=== PATIENT | male | born 1970 | race African-American/Black ===

== ENCOUNTER 2020-10-08 16:32 | Outpatient (CLI) | payer OTHER ==
[2020-03-22 02:58] LABS: SARS-CoV-2 PCR by NAA Not Detected (NotDetected)
[2020-10-09 12:28] LABS: SARS-CoV-2 PCR by NAA Not Detected (NotDetected)
== END 2020-10-08 16:33 | disposition home or self-care (01) ==
LOC: CSHLAB 16:32
PROVIDERS: ATTEND Internal Medicine Gastroenterology
DX: Z20.822 Contact with and (suspected) exposure to COVID-19 (principal); R19.7 Diarrhea, unspecified; R10.9 Unspecified abdominal pain
CPT/HCPCS: U0003; U0005

== ENCOUNTER 2020-12-20 08:11 | Outpatient (CLI) | payer OTHER ==
[2020-12-20 18:08] LABS: SARS-CoV-2 PCR by NAA Not Detected (NotDetected)
== END 2020-12-20 08:12 | disposition home or self-care (01) ==
LOC: CSHLAB 08:11
PROVIDERS: ATTEND Internal Medicine Gastroenterology
DX: Z01.812 Encounter for preprocedural laboratory examination (principal); Z20.822 Contact with and (suspected) exposure to COVID-19; K62.5 Hemorrhage of anus and rectum
CPT/HCPCS: U0003; U0005

== ENCOUNTER 2020-12-23 06:28 | Day surgery (SDC) | payer OTHER ==
[2020-12-19 13:34] VITALS: BMI 50.8
[2020-12-23] MEDS ORDERED: Lidocaine 1% MPF 2 ML VIAL ONE (07:11)
[2020-12-23] MEDS ORDERED: PROPOFOL 40 ML ONE (08:39)
[2020-12-23] MEDS ORDERED: Lidocaine 1% PF 5 ML VIAL ONE (08:39)
[2020-12-23] MEDS ORDERED: PROPOFOL 20 ML ONE (09:05)
== END 2020-12-23 09:48 | disposition home or self-care (01) ==
LOC: CSHSDC 06:28
PROVIDERS: ATTEND Internal Medicine Gastroenterology
PROC: 0DJD8ZZ Inspection of Lower Intestinal Tract, Via Natural or Artificial Opening Endoscopic (ICD-10-PCS; principal; 2020-12-23)
DX: K62.5 Hemorrhage of anus and rectum (principal); K59.00 Constipation, unspecified; Z80.0 Family history of malignant neoplasm of digestive organs; Z86.010 Personal history of colon polyps; K64.9 Unspecified hemorrhoids
CPT/HCPCS: J2704

== ENCOUNTER 2022-12-07 13:27 | Outpatient (CLI) | payer OTHER | END 2022-12-07 13:28 | disposition home or self-care (01) | LOC: CSHCP 13:27 | PROVIDERS: ATTEND Chiropractor | DX: J45.909 Unspecified asthma, uncomplicated (principal); R94.2 Abnormal results of pulmonary function studies | CPT/HCPCS: 94060; 94664; 94760 ==